=== PATIENT | male | born 1980 | race Hispanic/Latino ===

== ENCOUNTER 2018-07-21 09:23 | Emergency (ER) | payer BC ==
[2018-07-21] MEDS ORDERED: Ondansetron PF 4 MG/2 ML Vial ONE (10:06)
[2018-07-21 10:10] LABS: #Basophils 0.1 thou/uL (0.0-0.2); #Eosinphils 0.1 thou/uL (0.0-0.7); #Lymphocytes 0.8 thou/uL (1.20-3.40); #Monocytes 0.7 thou/uL (0.11-0.59); #Neutrophils 3.8 thou/uL (1.40-6.50); %Basophils 0.9 % (0.0-1.0); %Eosinophils 1.4 % (0.0-10.0); %Lymphocytes 14.7 % (21.0-51.0); %Monocytes 12.6 % (0.0-10.0); %Neutrophils 70.4 % (42.0-75.0); Hemoglobin 17.1 g/dL (14.0-18.0); Mean Corpuscular HGB CONC 34.4 g/dL (32.0-36.0); Mean Corpuscular Hemoglobin 32.6 pg (27.0-31.0); Mean Corpuscular Volume 94.9 fL (78.0-98.0); Mean Platelet Volume 8.9 fL (7.4-10.4); Platelet Count 171 thou/uL (130-400); RBC Distribution Width 11.3 % (11.5-14.5); Red Blood Cell (RBC) Count 5.25 mill/uL (4.70-6.10); White Blood Cell (WBC) Count 5.4 thou/uL (4.8-10.8)
[2018-07-21 10:30] LABS: ALT (SGPT) 103 U/L (8-55); AST (SGOT) 66 U/L (5-34); Albumin 4.4 g/dL (3.5-5.0); Alkaline Phosphatase 79 U/L (40-150); Anion Gap 11 mmol/L (10-20); BUN (Urea Nitrogen) 19 mg/dL (8.9-20.6); Bilirubin, Total 0.8 mg/dL (0.2-1.2); Calc. Creatinine Clearance 0 mL/min (70-130); Calcium 9.9 mg/dL (7.8-10.44); Carbon Dioxide 30 mmol/L (22-29); Chloride 99 mmol/L (98-107); Estimated GFR-MDRD 77; Globulin 3.9 g/dL (2.4-3.5); Glucose 104 mg/dL (70-105); Lipase 114 U/L (8-78); Potassium 3.9 mmol/L (3.5-5.1); Protein, Total 8.3 g/dL (6.0-8.3); Sodium 136 mmol/L (136-145)
--- NOTE | 2018-07-21 11:50 | ULT ---
RIGHT UPPER QUADRANT ULTRASOUND: Date: 07/21/18 HISTORY: Abdominal pain with nausea and vomiting. FINDINGS: The liver is enlarged in craniocaudal dimensions measuring 18.4 cm. There is diffuse increased echoge nicity, however, suggesting diffuse fatty infiltration. No focal hepatic lesion is appreciated. Majority of the pancreas is obscured by bowel gas, but limited visualized portions of the pancreas, a s well as visualized portions of the IVC, demonstrate a normal sonographic appearance. The gallbladder and right kidney demonstrate a normal sonographic appearance. The right kidney measur es 9.7 cm in length. The common duct measures 0.4 cm in diameter, which is within normal limits. IMPRESSION: 1. Mild hepatomegaly with diffuse fatty infiltration of the liver. 2. No gallbladder calculi are visualized. POS: PRISCA
[2018-07-21 11:59] LABS: Bilirubin Negative (Negative); Blood, Urine Negative (Negative); Clarity CLEAR (Clear); Glucose, Urine (Dipstick) Negative (Negative); Leukocyte Negative (Negative); Nitrite Negative (Negative); Protein, Urine (Dipstick) Trace mg/dL (Neg-Trace); Specific Gravity, Urine 1.023 (1.002-1.036); Urobilinogen 0.2 mg/dL (0.2-1.0)
== END 2018-07-21 11:57 | disposition home or self-care (01) ==
LOC: ERS 09:23
DX: R10.84 Generalized abdominal pain (principal); R11.2 Nausea with vomiting, unspecified; R19.7 Diarrhea, unspecified
CPT/HCPCS: 76705; 80053; 81003; 83690; 85025; 96361; 96372; 96374; J2405